=== PATIENT | female | born 1990 | race Caucasian/White ===

== ENCOUNTER 2016-05-30 20:08 | Emergency (ER) | payer OTHER ==
[~2016-05-30] VITALS: Ht 160 cm; Wt 50.0 kg
[~2016-05-30 20:08] MED LIST: AMIT10TA13 PO; CEPH-460 PO; FIORINAL2 PO; FLUC200T63 PO; SUMA20I
[2016-05-30 20:12] VITALS: BP 117/71; PULSE 84; RESP 20; TEMP 98; O2SAT 100
--- NOTE | 2016-05-30 20:23 | PD ---
HPI Chief Complaint: Respiratory Symptoms Time Seen by Provider: 20:12 Travel History International Travel<30 days: No Contact w/Intl Traveler<30days: No Traveled to known affect area: No History of Present Illness HPI 25-year-old female with no significant past medical issues, presents to the ER today for 2 weeks history of coughing, had one episode of vomiting today. She states that she is coughing so much her sternum hurts. She denies any fevers, abdominal pains, or any other symptoms. She states she had a fit of coughing today and called EMS because she couldn't breathe. She was given albuterol but she states that did not help her much. She does not know any sick contacts. Modifying Factors: None Associated Signs & Symptoms: Coughing spasms, for 2 weeks Risk Factors: None PFSH Past Medical History Headaches: Yes Tetanus Vaccination: Unknown ?: Not LMP: IRRIGULAR : 2 Para: 2 Past Surgical History Surgical History: No Previous Surgery Social History Alcohol Use: No Tobacco Use: No Substance Use: No Allergies-Medications (Allergen,Severity, Reaction): Coded Allergies: No Known Allergies (Verified , 05/30/16) Reported Meds & Prescriptions Reported Meds & Active Scripts Active No Active Prescriptions or Reported Medications Review of Systems Except as stated in HPI: all other systems reviewed are Neg Physical Exam Narrative GENERAL: Well-nourished, well-developed young white female patient in no acute distress, coughing in the ER. SKIN: Warm and dry. HEAD: Normocephalic. EYES: No scleral icterus. No injection or drainage. NECK: Supple, trachea midline. CARDIOVASCULAR: Regular rate and rhythm without murmurs, gallops, or rubs. RESPIRATORY: Breath sounds equal bilaterally. No accessory muscle use. GASTROINTESTINAL: Abdomen soft, non-tender, nondistended. MUSCULOSKELETAL: No cyanosis, or edema. BACK: Nontender without obvious deformity. No CVA tenderness. Data Data Last Documented VS Vital Signs Date Time Temp Pulse Resp B/P Pulse Ox O2 Delivery O2 Flow Rate FiO2 05/30/16 20:17 96 19 100 Room Air 05/30/16 20:12 98.0 117/71 Orders Chest, Single Ap (05/30/16 20:12) MDM Medical Decision Making Medical Screen Exam Complete: Yes Emergency Medical Condition: Yes Medical Record Reviewed: Yes Interpretation(s) Last 24 hours Impressions Chest X-Ray 05/30/162011 Signed Impressions: Service Date/Time: Monday, May 30, 2016 20:27 - CONCLUSION: No evidence of acute cardiopulmonary disease. Adán Davis MD Differential Diagnosis Coughing spasmsbronchitis versus aspirin versus pneumonia versus URI Narrative Course Vital signs are stable in the ER. Chest x-ray did not show any signs of acute pulmonary processes. At this point, it appears that she has had one nebulizer by EMS which did not improve her symptoms significantly. I do not suspect underlying acute pulmonary processes. I suspect that she may have some underlying bronchitis or URI causing her current symptoms. My plan would be to give her symptomatic relief for coughing and have her finish her Z-Al. Return for any worsening in symptoms as necessary. Follow-up with primary care physician. The plan has been discussed with her and she states understanding. Diagnosis Primary Impression: ACUTE BRONCHITIS, UNSPECIFIED Med/Other Pt SpecificInfo: Prescription(s) given Scripts Albuterol 6.7 GM Inh (Proventil Hfa 6.7 GM Inh)90 Mcg/Act Aer2 Puff INH Q4-6H PRN (SHORTNESS OF BREATH) #1 INHALER Ref 0 Prov:Yarelis Burr MD 05/30/16 Benzonatate (Tessalon Perles)100 Mg Ray626 Mg PO TID PRN (COUGH) #21 CAP Ref 0 Prov:Yarelis Burr MD 05/30/16 Disposition: 01 DISCHARGE HOME Condition: Stable Yarelis Burr MD May 30, 2016 20:22
--- NOTE | 2016-05-30 20:38 | RADRPT ---
EXAM DATE/TIME: 05/30/2016 20:27 [facility] COMPARISON: No previous studies available for comparison. INDICATIONS : Cough and shortness of breath. MEDICAL HISTORY : None. SURGICAL HISTORY : None. ENCOUNTER: Initial ACUITY: 3 days PAIN SCORE: 2/10 LOCATION: Bilateral chest FINDINGS: A single view of the chest demonstrates the lungs to be symmetrically aerated without evidence of mas s, infiltrate or effusion. The cardiomediastinal contours are unremarkable. Osseous structures are intact. CONCLUSION: No evidence of acute cardiopulmonary disease. Adán Davis MD on May 30, 2016 at 20:36 Board Certified Radiologist. This report was verified electronically.
[2016-05-30] MEDS ORDERED: BENZ100 PO (21:00)
[2016-05-30] MEDS ORDERED: ALBU6.7H INH (21:00)
[2016-06-14] MEDS ORDERED: AZIT500T2 PO (17:13)
[2016-08-17] MEDS ORDERED: KETO60IN6 IM (10:30)
[2016-08-17] MEDS ORDERED: BUTA1CAP PO (10:31)
[2016-09-11] MEDS ORDERED: FLUO10TA PO (10:20)
== END 2016-05-30 21:15 | disposition home or self-care (01) ==
LOC: NEPE 20:08
DX: J20.9 Acute bronchitis, unspecified (principal); R11.10 Vomiting, unspecified
CPT/HCPCS: 71010; 99283

== ENCOUNTER 2016-09-10 11:52 | Emergency (ER) | payer OTHER ==
[~2016-09-10] VITALS: Ht 160 cm; Wt 45.0 kg
[~2016-09-10 11:52] MED LIST changes: +ALBU6.7H INH; -AMIT10TA13 PO; +BUTA1CAP PO; -CEPH-460 PO; -FIORINAL2 PO; -FLUC200T63 PO; -SUMA20I
[2016-09-10 11:55] VITALS: BP 120/72; PULSE 72; RESP 20; TEMP 98.1; O2SAT 99
--- NOTE | 2016-09-10 11:59 | PD ---
Physical Exam Date Seen by Provider: Sep 10, 2016 Time Seen by Provider: 11:58 Data Data Last Documented VS Vital Signs Date Time Temp Pulse Resp B/P Pulse Ox O2 Delivery O2 Flow Rate FiO2 09/10/16 11:55 98.1 72 20 120/72 99 Room Air [facility] Supervised Visit with ALVARO: No Narrative Course 26 YO F with complaint of migraine x "days." Typical symptoms, worsening. Fioricet last night. Vitals reviewed. Seen in triage, awaiting bed placement. Nina Garibay Sep 10, 2016 11:59
[2016-09-10] MEDS ORDERED: SODIUM CHLOR 0.9% 1000 ML INJ 1,000 ML IV ONE (12:19)
--- NOTE | 2016-09-10 12:22 | PD ---
HPI Chief Complaint: Headache Time Seen by Provider: 12:22 Travel History International Travel<30 days: No Contact w/Intl Traveler<30days: No Traveled to known affect area: No History of Present Illness HPI 26-year-old female with a history of migraine headaches presents to the emergency department for evaluation of headache for 3-4 days. Patient states this is a typical migraine headache for her, it is not the worst headache of her life. States she has photophobia, phonophobia, and nausea. Denies fever, chills, vomiting, cough or cold symptoms, numbness or tingling, weakness. Denies but unsure of last menstrual cycle. States she tried Fioricet at home without improvement of symptoms. No other complaints. PFSH Past Medical History Headaches: Yes ?: Not : 2 Para: 2 Social History Alcohol Use: No Tobacco Use: No Substance Use: No Allergies-Medications (Allergen,Severity, Reaction): Coded Allergies: No Known Allergies (Verified , 09/10/16) Reported Meds & Prescriptions Reported Meds & Active Scripts Active Fioricet (Nlbikcyljr-Ykyrbohpmwdzg-Ysfgsnqz) 50-300-40 Mg Cap 1-2 Cap PO Q6H PRN Review of Systems Except as stated in HPI: all other systems reviewed are Neg Physical Exam Narrative GENERAL: Well-nourished and well-developed pleasant patient in no acute distress who is nontoxic appearing. SKIN: Warm and dry. HEAD: Normocephalic and atraumatic. EYES: No injection, drainage, or hyphema noted. PERRLA. EOMI. ENT: No nasal drainage noted. Oropharynx is clear. NECK: Supple and the trachea is midline. CARDIOVASCULAR: Regular rate and rhythm. RESPIRATORY: Breath sounds are equal bilaterally with no accessory muscle use, wheezing, rhonchi, or crackles. GASTROINTESTINAL: Abdomen is soft, non-tender, and nondistended. MUSCULOSKELETAL: No obvious deformities, swelling, cyanosis, or ecchymosis is present throughout the upper and lower extremities. Patient has full range of motion without any signs of neurovascular compromise. Strength 5/5 upper and lower extremity bilaterally. NEUROLOGICAL: Awake, alert, and oriented. Normal speech and gait. Cranial nerves are grossly intact. Data Data Last Documented VS Vital Signs Date Time Temp Pulse Resp B/P Pulse Ox O2 Delivery O2 Flow Rate FiO2 09/10/16 12:54 64 16 113/65 98 Room Air 09/10/16 11:55 98.1 Orders Ecg Monitoring (09/10/16 12:19) Iv Access Insert/Monitor (09/10/16 12:19) Oximetry (09/10/16 12:19) Sodium Chloride 0.9% Flush (Ns Flush) (09/10/16 12:30) Ketorolac Inj (Toradol Inj) (09/10/16 12:30) Prochlorperazine Inj (Compazine Inj) (09/10/16 12:30) Diphenhydramine Inj (Benadryl Inj) (09/10/16 12:30) Sodium Chlor 0.9% 1000 Ml Inj (Ns 1000 M (09/10/16 12:19) Ed Urine Pregnancytest Poc (09/10/16 12:22) MDM Medical Decision Making Medical Screen Exam Complete: Yes Emergency Medical Condition: Yes Differential Diagnosis Migraine versus tension headache versus recurrent headache Narrative Course 26-year-old female with a history of migraines presents to the emergency department for evaluation of migraine headache for 3 days. Patient is afebrile , vital signs are stable. Physical examination is unremarkable. She has a history of migraines and this headache is the same. ED urine test is negative. IV access is obtained. Patient is administered Benadryl, Compazine, Toradol and fluids. Patient reassessed after receiving medications and reports improvement of symptoms. She is stable to be discharged home. Advised follow- up with her PCP. Patient verbalizes understanding and agreement with treatment plan. Diagnosis Primary Impression: Migraine Qualified Code: G43.009 - Migraine without aura and without status migrainosus , not intractable Referrals: Primary Care Physician Patient Instructions: General Instructions, Migraine Headache (ED) Additional Instructions: Follow-up with your Primary Care Physician. Return to the ED for any acute worsening of symptoms. Med/Other Pt SpecificInfo: No Change to Meds Disposition: 01 DISCHARGE HOME Condition: Stable Thea Faith Sep 10, 2016 12:22
[2016-09-10] MEDS ORDERED: SODIUM CHLORIDE 0.9% FLUSH 10 ML FLUSH IVF PRN (12:30)
[2016-09-10] MEDS ORDERED: KETOROLAC TROMETHAMINE 30 MG/ML (IVP) VIAL IVP ONE (12:30)
[2016-09-10] MEDS ORDERED: PROCHLORPERAZINE INJ 10 MG/2 ML VIAL IVP ONE (12:30)
[2016-09-10] MEDS ORDERED: diphenhydrAMINE HCL 50 MG/ML VIAL IVP ONE (12:30)
[2016-09-10 12:52] VITALS: O2SAT 98
[2016-09-10 12:54] VITALS: BP 113/65; PULSE 64; RESP 16; O2SAT 98
[2016-09-11] MEDS ORDERED: FLUO10TA PO (10:20)
== END 2016-09-10 14:28 | disposition home or self-care (01) ==
LOC: NEPE 11:52
DX: G43.009 Migraine without aura, not intractable, without status migrainosus (principal)
CPT/HCPCS: 84703; 96374; 96375; 99284; J0780; J1200; J1885; J7030

== ENCOUNTER 2017-08-16 23:37 | Emergency (ER) | payer OTHER ==
[~2017-08-16] VITALS: Ht 160 cm; Wt 48.0 kg
[~2017-08-16 23:37] MED LIST changes: -ALBU6.7H INH; +ZITH500T PO
[2017-08-16 23:41] VITALS: BP 116/82; PULSE 68; RESP 18; TEMP 98.2; O2SAT 97
== END 2017-08-17 00:25 | disposition left against medical advice (07) ==
LOC: NED 23:59
DX: R06.09 Other forms of dyspnea (principal); Z53.21 Procedure and treatment not carried out due to patient leaving prior to being seen by health care provider
CPT/HCPCS: 99281